=== PATIENT | male | born 1945 | race Caucasian/White ===

== ENCOUNTER → 2019-10-15 | Outpatient (CLI) | payer MEDICARE ==
--- NOTE | 2019-10-15 10:00 | US ---
EXAMINATION TYPE: US abdomen complete DATE OF EXAM: 10/15/2019 COMPARISON: NONE CLINICAL HISTORY: R94.5 abn results of liver function studies. Difficult exam due to overlying bowel gas EXAM MEASUREMENTS: Liver Length: 13.1 cm Gallbladder Wall: 0.2 cm CBD: 0.4 cm Spleen: 9.2 cm Right Kidney: 9.7 x 4.8 x 4.7 cm Left Kidney: 10.6 x 5.0 x 5.5 cm Pancreas: Mostly obscured by bowel gas. Main pancreatic duct is prominent in size measured at 0.3 cm . Liver: wnl Gallbladder: wnl Evidence for sonographic Horn's sign: No CBD: wnl Spleen: wnl Right Kidney: Probable renal sinus cysts with the largest measuring 1.1 x 1.1 x 1.3 cm Left Kidney: Possible renal sinus cyst appearing benign versus prominent left renal pelvis. No hydron ephrosis. Upper IVC: wnl Abd Aorta: Atherosclerotic changes visualized, no sonographic evidence of AAA The liver is homogenous. The intrahepatic portion of the IVC and proximal abdominal aorta are within normal limits. There is no evidence of cholelithiasis. Common bile duct is unremarkable. The splee n is unremarkable. Kidneys are symmetric and free of hydronephrosis. IMPRESSION: 1. The liver is homogeneous sonographically despite abnormal liver function tests. 2. Pancreatic duct is upper limits of normal size. The pancreas is largely obscured by bowel gas on u ltrasound. This could be further assessed with MRCP. 3. Probable renal sinus cysts on the right and possible benign-appearing left renal sinus cyst versus prominent renal pelvis. No hydronephrosis of either kidney.
== END | disposition home or self-care (01) ==
LOC: RADUSWWP 08:59
PROVIDERS: ATTEND Internal Medicine Geriatric Medicine
DX: R94.5 Abnormal results of liver function studies (principal); R14.3 Flatulence
CPT/HCPCS: 76700

== ENCOUNTER → 2025-01-18 | Outpatient (CLI) | payer MEDICARE | END | disposition home or self-care (01) | LOC: LABWHC1 14:45 | PROVIDERS: ATTEND Urology | DX: C61 Malignant neoplasm of prostate (principal) | CPT/HCPCS: 36415; 84153 ==